=== PATIENT | female | born 1960 | race Caucasian/White ===

== ENCOUNTER → 2017-06-12 | Outpatient (CLI) | payer SELFPAY ==
--- NOTE | 2017-06-12 16:02 | KCIC ---
MRI Lumbar Spine without contrast History: Left sciatica, chronic low back pain, bilateral leg pain greater on the left Technique: Multiplanar, multi sequential noncontrast MR imaging was performed of the lumbar spine. Contrast: None Comparison: None Findings: Lumbar vertebral body stature and AP alignment are preserved. There is mild degenerative disc disease at L4-5, mild disc desiccation L5-S1. Conus terminates at L1. There is nonspecific edema of the posterior subcutaneous fat of the lower back. There is no significant marrow edema. There is a small focus of degenerative endplate change or hemangioma of the inferior L2 endplate. There is posterior annular tear L4-5. L1-L2: Neural foramina and spinal canal are adequate. L2-L3: Neural foramina and spinal canal are adequate. There is mild facet hypertrophic change and buckling of the ligamentum flavum. L3-L4: There is mild buckling of the ligamentum flavum. Neural foramina and spinal canal are adequate. There is negligible disc osteophyte complex. L4-L5: There is minimal buckling of the ligamentum flavum. There is minimal disc osteophyte complex and bulge. There is mild narrowing of the far lateral recesses somewhat greater on the left. There is mild posterior narrowing of the right neural foramen, left neural foramen adequate. L5-S1: Spinal canal and neural foramina are adequate. Impression: 1. There is mild lateral recess stenosis greater on the left at L4-5. There is mild degenerative disc disease at L4-5. There is no significant lumbar neural foramina compromise, minimal posterior narrowing on the right at L4-5. Electronically signed by: Chapo Joiner MD (06/12/2017 3:59 PM) [id number]
== END | disposition home or self-care (01) ==
LOC: KCIC MRI 14:26
PROVIDERS: ATTEND Family Medicine
DX: M54.42 Lumbago with sciatica, left side (principal); M51.36 Other intervertebral disc degeneration, lumbar region; M48.061 Spinal stenosis, lumbar region without neurogenic claudication
CPT/HCPCS: 72148